=== PATIENT | female | born 1930 | race Caucasian/White ===

== ENCOUNTER → 2017-02-07 | Outpatient (CLI) | payer OTHER ==
[~2017-02-07] MED LIST: AMLO-110 PO; ASPEC81 PO; ATEN-175 PO; CALCTAB5 PO; FSM70 PO; LEVO25TA34 PO; LISI40TA PO; MULT-513 PO; OMEP10CA2; PRLSR20 PO
--- NOTE | 2017-02-07 15:12 | MAMMOGRAPHY REPORT ---
BILATERAL DIGITAL SCREENING MAMMOGRAM WITH CAD: 02/07/2017 CLINICAL HISTORY: Routine screening. Patient has no complaints. TECHNIQUE: Bilateral CC, MLO and repeat right MLO views were obtained. Current study was also evalua jeremy with a Computer Aided Detection (CAD) system. COMPARISON: Comparison is made to exams dated: 02/04/2016 mammogram, 12/26/2014 mammogram, 12/25/2013 [place] mogram, 12/13/2012 mammogram, 12/13/2011 mammogram, and 12/11/2010 mammogram - [facility] ter. BREAST COMPOSITION: There are scattered areas of fibroglandular density in both breasts. FINDINGS: There are mild vascular calcifications in the breasts. No suspicious mass, architectural d istortion or cluster of microcalcifications is seen. IMPRESSION: ACR BI-RADS CATEGORY 1: NEGATIVE There is no mammographic evidence of malignancy. A 1 year screening mammogram is recommended. The pa tient will receive written notification of the results. Approximately 10% of breast cancers are not detected with mammography. A negative mammographic report should not delay biopsy if a clinically suggestive mass is present. Viv Cameron M.D. ay/:02/07/2017 09:18:20 Searchlight Operator: Jennifer GARCIA(Melvin)(Sapna)(BD), [facility] letter sent: Normal 1/2 BI-RADS Code: ACR BI-RADS Category 1: Negative
== END | disposition home or self-care (01) ==
LOC: C.MAMM 08:38
PROVIDERS: ATTEND Family Medicine
DX: Z12.31 Encounter for screening mammogram for malignant neoplasm of breast (principal)

== ENCOUNTER → 2018-02-08 | Outpatient (CLI) | payer OTHER ==
[~2018-02-08] MED LIST changes: -AMLO-110 PO; +AMLO5TAB3 PO
--- NOTE | 2018-02-09 08:09 | MAMMOGRAPHY REPORT ---
BILATERAL DIGITAL SCREENING MAMMOGRAM TOMOSYNTHESIS WITH CAD: 02/08/2018 CLINICAL HISTORY: Routine screening. Patient has no complaints. TECHNIQUE: The study was acquired using full field digital technology and interpreted from soft copy. Tomosynthesis (3D imaging) was done in the CC and MLO projections. A C-view reconstruction was then done. Current study was also evaluated with a Computer Aided Detection (CAD) system. COMPARISON: Comparison is made to exams dated: 02/07/2017 mammogram, 02/04/2016 mammogram, 12/26/2014 ma mmogram, 12/25/2013 mammogram, 12/13/2012 mammogram, and 12/13/2011 mammogram - [facility] [address] BREAST COMPOSITION: There are scattered areas of fibroglandular density in both breasts. FINDINGS: There are mild vascular calcifications in the breasts. The glandular pattern is similar to prior mammograms. No suspicious mass, architectural distortion or cluster of microcalcifications is seen. IMPRESSION: ACR BI-RADS CATEGORY 1: NEGATIVE There is no mammographic evidence of malignancy. A 1 year screening mammogram is recommended.( 019) The patient will receive written notification of the results. Approximately 10% of breast cancers are not detected with mammography. A negative mammographic report should not delay biopsy if a clinically suggestive mass is present. Viv Cameron M.D. ay/:02/08/2018 09:20:36 Electrician Control Equipment: Virginia Cespedes, [facility] letter sent: Normal 1/2 BI-RADS Code: ACR BI-RADS Category 1: Negative
== END | disposition home or self-care (01) ==
LOC: C.MAMM 08:46
PROVIDERS: ATTEND Family Medicine
DX: Z12.31 Encounter for screening mammogram for malignant neoplasm of breast (principal)

== ENCOUNTER 2019-09-18 13:20 | Inpatient (IN) ==
[2019-09-18 13:53] LABS: Basophils # (auto) 0.03 K/uL (0-0.2); Basophils % (auto) 0.4 %; Eosinophils # (auto) 0.06 K/uL (0-0.5); Eosinophils % (auto) 0.8 %; Hemoglobin 14.9 g/dL (12.0-16.0); Immature Granulocytes # (auto) 0.02 K/uL (0.00-0.02); Immature Granulocytes % (auto) 0.3 %; Lymphocytes # (auto) 1.67 K/uL (1.2-3.4); Lymphocytes % (auto) 21.9 %; Mean Corpuscular Hemoglobin 28.5 pg (25-34); Mean Corpuscular Hgb Conc 33.1 g/dL (32-36); Mean Platelet Volume 8.9 fL (7.4-10.4); Monocytes % (auto) 7.9 %; Neutrophils # (auto) 5.24 K/uL (1.4-6.5); Neutrophils % (auto) 68.7 %; Platelet Count 232 K/uL (130-400); RDW Coefficient of Variation 13.2 % (11.5-14.5); Red Blood Count 5.23 M/uL (4.2-5.4); White Blood Count 7.62 K/uL (4.8-10.8)
--- NOTE | 2019-09-18 13:56 | CT Scan Report ---
CT head/brain wo con CLINICAL HISTORY: 89 years-old Female with Stroke evaluation . Acute strokelike symptoms TECHNIQUE: Multiple axial CT images of the head were obtained without contrast. A dose lowering tech nique was utilized adhering to the principles of ALARA. CT DOSE: 537.48 mGy.cm COMPARISON: None. FINDINGS: No acute intracranial hemorrhage, midline shift, intracranial mass, hydrocephalus, territorial ischem ia or abnormal extra-axial collection. Patchy white matter hypodensities suggest chronic microvascula r scheme disease. Decreased attenuation of the right external capsule and right sharpe radiata may al so reflect chronic perivascular ischemic disease versus encephalomalacia related to remote infarct. The calvarium is intact. Mastoid air cells are clear. Mild mucosal thickening of the ethmoid air uriel ls. Complete opacification of the right frontal sinus. 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 Soft tissues and orbits are unremarkable. Prior bilateral lens replacement. IMPRESSION: No acute intracranial abnormality. ACT 112: Negative or not required by law. The above report was generated using voice recognition software. It may contain grammatical, syntax o r spelling errors. Electronically signed by: Emmanuel Kumar M.D. 09/18/2019 1:54 PM
[2019-09-18 14:03] LABS: Partial Thromboplastin Ratio 0.9; Partial Thromboplastin Time 23.9 Seconds (21.0-31.0); Prothrombin Time 10.2 Seconds (9.0-12.0)
[2019-09-18 14:10] LABS: Alanine Aminotransferase 22 U/L (12-78); Albumin Level 4.2 gm/dl (3.4-5.0); Aspartate Aminotransferase 18 U/L (15-37); BUN Creatinine Ratio 17.4 (10-20); Blood Urea Nitrogen 20 mg/dl (7-18); Calcium 9.8 mg/dl (8.5-10.1); Carbon Dioxide 32 mmol/L (21-32); Chloride 102 mmol/L (98-107); Creatinine Clr Calc Pharmacy 24.5 ml/min; Est GFR (African American) 49.7; Est GFR (Non-African American) 42.9; Glucose 131 mg/dl (70-99); Magnesium 2.3 mg/dl (1.8-2.4); Potassium 3.7 mmol/L (3.5-5.1); Sodium 140 mmol/L (136-145)
[2019-09-18] MEDS ORDERED: LABETALOL HCL IV 5 MG/ML 20ML IV STA ×3 (14:10→15:55)
--- NOTE | 2019-09-18 14:12 | XRay Report ---
XR chest 1V portable CLINICAL HISTORY: cva mental status change COMPARISON STUDY: No previous studies for comparison. FINDINGS: The bones soft tissues and hemidiaphragms are normal. The cardiomediastinal silhouette is n ormal. The lungs are clear. The pulmonary vasculature is normal. IMPRESSION: Negative chest. ACT 112: Negative or not required by law. The above report was generated using voice recognition software. It may contain grammatical, syntax or spelling errors. Electronically signed by: Darian Ambrose M.D. 09/18/2019 2:11 PM
[2019-09-18 14:15] LABS: Albumin Globulin Ratio 1.2 (0.9-2); Alkaline Phosphatase 82 U/L (45-117); Bilirubin,Total 0.5 mg/dl (0.2-1); Globulin 3.6 gm/dl (2.5-4.0); Total Protein 7.9 gm/dl (6.4-8.2); Troponin I < 0.015 ng/ml (0-0.045)
[2019-09-18] MEDS ORDERED: ASPIRIN CHEW 324 MG PO STA (14:34)
--- NOTE | 2019-09-18 15:04 | Electrocardiogram Report ---
Test Reason : Blood Pressure : / mmHG Vent. Rate : 079 BPM Atrial Rate : 079 BPM P-R Int : 146 ms QRS Dur : 090 ms QT Int : 392 ms P-R-T Axes : 072 -71 055 degrees QTc Int : 449 ms Normal sinus rhythm Left anterior fascicular block Abnormal ECG When compared with ECG of 07-AUG-2003 19:18, Left anterior fascicular block is now Present Confirmed by Tai Parson ([id number]) on 09/18/2019 3:04:18 PM Referred By: REFERRED SELF Confirmed By:Shahriar Parson
--- NOTE | 2019-09-18 15:56 | History & Physical Report ---
Date of Service September 18, 2019 Assessment & Plan (1) Hypertensive urgency: (2) Confusion: Pt is 89 y/o F with PMH HTN, CKD III, hypothyroidism, GERD, h/o subarachnoid hemorrhage in 2003 presented to ER with complaint of trouble remembering today around 11:00AM and frontal FREEMAN. In ER afebrile, P: 889, R: 20, BP: 206/112. SBP remains in 200's after 2 doses of Labetalol 10mg IV in ER CT Head: no acute changes DDX: hypertensive encephalopathy, TIA, Stroke -UA pending -Tele to monitor for arrhythmias -lipids and A1C in AM -MRI brain -Consider echo, carotid US if MRI positive for CVA -PT/OT consult -Start daily aspirin -Labetalol IV PRN SBP>180 -Will start amlodipine 2.5mg BID with holding parameters for SBP<140 to avoid lowering BP's too much -Continue lisinopril -Neurology consult (3) HTN (hypertension): Pt is on lisinopril 40mg daily and losartan 25mg BID at home -Hold losartan -Continue lisinopril -Will add amlodipine 2.5mg BID (4) CKD (chronic kidney disease), stage III: Cr: 1.14. Baseline ~1.0 -Monitor renal functions -Avoid nephrotoxic agents (5) Hypothyroidism: TSH: 2.0 -Continue levothyroxine DVT Prophylaxis -Heparin SQ Full Code as per discussion with pt Follows with Dr Patton for routine care Pt was seen and care coordinated with Dr Concepcion. See addendum History of Present Illness Chief Complaint: Trouble remembering Primary Care Provider: José Patton MD Pt is 89 y/o F with PMH HTN, CKD III, hypothyroidism, GERD, h/o subarachnoid hemorrhage in 2003 presented to ER with complaint of memory difficulties today. History obtained with assistance of son secondary to patient's memory troubles. Reports patient woke up this morning and was her normal mental state. Patient states she thinks that she took her morning medications. Son reports around 11: 00 AM the patient started having trouble remembering which has continued. Patient also reports frontal headache. Denies any recent illnesses. Denies any recent falls or head injury. Denies new medications or OTC meds or supplements. Denies fever/chills, diaphoresis, N/V/D/C, dizziness, syncope, vision changes, neck pain, CP, SOB, orthopnea, palpitations, cough, sore throat, choking, otalgia, rhinorrhea, abdominal pain, paresthesias, weakness, extremity weakness, extremity edema, rashes, urinary symptoms. Allergies Allergy/AdvReac Type Severity Reaction Status Date / Time Sulfa (Sulfonamide Allergy Unknown SWEATING, Verified 09/18/19 15:29 Antibiotics) HOT FLASHES sulfamethoxazole Allergy Unknown SWEATING, Verified 09/18/19 15:29 HOT FLASHES trimethoprim Allergy Unknown SWEATING, Verified 09/18/19 15:29 HOT FLASHES Home Medications Home Medications Medication Instructions Recorded Confirmed Type famotidine 20 mg PO HS 09/18/19 09/18/19 History levothyroxine 75 mcg PO QAM 09/18/19 09/18/19 History lisinopril 40 mg PO QAM 09/18/19 09/18/19 History losartan 25 mg PO BID 09/18/19 09/18/19 History metoprolol succinate 50 mg PO DAILY 09/18/19 09/18/19 History multivitamin 1 tab PO DAILY 09/18/19 09/18/19 History olopatadine 1 drp OPB QAM 09/18/19 09/18/19 History Past Med/Surg History Medical History CKD (chronic kidney disease), stage III GERD (gastroesophageal reflux disease) History of subarachnoid hemorrhage HTN (hypertension) Hypothyroidism Surgical History History of appendectomy Hx of tonsillectomy Family History Other Heart disease Hypertension Social History Preferred Language: Irish Communication Ability: Effective Dental Ceramist Required: No Beliefs That Will Affect Care: None Current Living Situation: Alone Other Information That Helps Us Care for You: Yes Feels Safe at Home: Yes Safety Concerns: Feels Safe At This Time Smoking Status: Never smoker Hx Alcohol Use: Yes Hx Substance Use: No Review of Systems Review of Systems: All systems reviewed & are unremarkable except as noted in HPI & below Physical Exam Physical Exam: General: no distress, WDWN Head: normocephalic, atraumatic Eyes: PERRL, EOM's intact, conjunctiva non-injected, anicteric ENT: normal inspection external ears, nose, mucous membranes moist Neck: supple, trachea midline, non-tender Lungs: clear, no respiratory distress, no wheezing/rhonchi/rales CV: RRR, S1, S2, S4 heart sound, no murmur, no pretibial edema Abd: normal BS, soft, non-tender Ext: no cyanosis, no calf tenderness Neuro: Alert, oriented to person, can remember her month but not day or year, knows current month and year, and knows son but has hesitation remembering sons name. Knows in hospital, unsure of city. Speech is clear, normal affect Visual white intact. Facial sensation is intact and symmetric, The face is strong and symmetric, Hearing grossly intact, Soft palate elevates symmetrically, Shoulder shrug intact, Tongue is midline, normal movement, no fasciculations. No pronator drift. Strength 5/5 throughout upper and lower extremities Skin: warm, dry Results & Data Vital Signs (Past 12 Hours) Vital Signs Temp Pulse Resp BP Pulse Ox 09/18/19 13:55 96 09/18/19 13:25 36.8 C 89 20 206/112 H 92 Laboratory Results Short CBC 09/18/19 Range/Units 13:42 WBC 7.62 (4.8-10.8) K/uL Hgb 14.9 (12.0-16.0) g/dL Hct 45.0 (37-47) % Plt Count 232 (130-400) K/uL BMP 09/18/19 13:42 Sodium 140 Potassium 3.7 Chloride 102 Carbon Dioxide 32 BUN 20 H Creatinine 1.14 Glucose 131 H Calcium 9.8 Cardiac Enzymes 09/18/19 Range/Units 13:42 Troponin I < 0.015 (0-0.045) ng/ml Liver Function 09/18/19 Range/Units 13:42 Total Bilirubin 0.5 (0.2-1) mg/dl AST 18 (15-37) U/L ALT 22 (12-78) U/L Alkaline Phosphatase 82 (45-117) U/L Albumin 4.2 (3.4-5.0) gm/dl Diagnostic Findings CT HEAD: IMPRESSION: No acute intracranial abnormality. CXR: IMPRESSION: Negative chest. ECG Rate (beats per minute): 79 Rhythm: sinus rhythm Findings: + LAFB Code Status & VTE Plan VTE Prophylaxis Plan VTE Prophylaxis will be ordered: Yes Supervising Physician Co-Signing Physician Notes HISTORY: Record reviewed. Patient interviewed and examined in ED. Care coordinated with Cori Trevino PA-C. Please refer to her documentation for complete history. Briefly, 89-year-old female with history of hypertension, traumatic subarachnoid hemorrhage, and other problems. Presented to ED with acute onset of confusion and problems with memory. Experiencing a frontal headache. No fever or symptoms that suggest infection. EXAM: General- no distress Vital signs- temp 36.8, pulse 89, respirations 20, BP 206/112 Lungs- clear to auscultation; no respiratory distress Cardiovascular- RRR; no murmur; S4 gallop; no JVD; no pretibial edema Abdomen- + bowel sounds, soft, nontender Extremities- no cyanosis; no calf tenderness Neuro- alert, oriented to person, hospital, year, but not exact date; PERRLA, EOMI; no facial palsy or dysarthria; motor strength extremities 5/5 bilaterally; plantar reflexes downgoing bilaterally Skin- warm & dry DATA: CBC unremarkable. Chemistry profile showed normal electrolytes, BUN 20, creatinine 1.14, glucose 131. UA negative. Other lab studies as noted. Chest x-ray negative. CT of head showed small vessel ischemic changes, no apparent hemorrhage or acute ischemic infarct. EKG performed at 1407 reviewed and demonstrated normal sinus rhythm at 80 / minute, no acute changes. ASSESSMENT AND PLAN: Hypertensive urgency with altered mental status. No acute findings on CT of head. No apparent infection. No new medications. Check MRI brain to rule out acute ischemic event. Titrate antihypertensive medications. Please refer to FLORENCE Trevino's documentation for discussion of other issues.
[2019-09-18 16:52] LABS: Appearance Urine Clear (Clear); Bilirubin Urine Negative (Negative); Blood Urine Negative (Negative); Color Urine Yellow; Glucose Urine UA Negative (Negative); Ketones Urine Negative (Negative); Leukocyte Esterase Urine Negative (Negative); Nitrite Urine Negative (Negative); Protein Urine Negative (Negative); Specific Gravity Urine 1.012 (1.000-1.030); Urobilinogen Urine Negative (Negative)
[2019-09-18] MEDS ORDERED: PHARMACIST DISCHARGE MED REC CONSULT PRN (16:58)
[2019-09-18] MEDS ORDERED: LABETALOL HCL IV 5 MG/ML 20ML IV PRN (16:58)
[2019-09-18 17:13] LABS: Amphetamines+Metham, Urine Neg (Neg); Barbiturates, Urine Neg (Neg); Benzodiazepine, Urine Neg (Neg); Cocaine, Urine Neg (Neg); MDMA (Ecstacy), Urine Neg (Neg); Methadone, Urine Neg (Neg); Opiate, Urine Neg (Neg); Phencyclidine, Urine Neg (Neg)
--- NOTE | 2019-09-18 17:51 | Emergency Department Note ---
Entered by Duglas James acting as a scribe for Oli Baez DO History of Present Illness General Chief complaint: Neuro Symptoms/Deficit Stated complaint: CONFUSION,WEAKNESS, CANT FIND WORDS Source: patient and family (son) Limitations: no limitations History of Present Illness Onset (ago): hour(s) (3.5 hours) Location: head Pain Consistency: + constant Maximum Pain Intensity: 0 Quality: + constant Associated symptoms: + other (slow speaking, trouble remembering names, dizziness, ) The patient is a 89 year old female who presents to the Emergency Room with complaints of constant weakness starting 3.5 hours ago. The patient's son states the patient was fine this morning. He states the patient started to get dizzy around 1100 today. He notes the patient then laid down and then answered the phone. He notes the patient was having trouble speaking and remembering names. He states she has been talking very slow which is unusual for her. He notes the patient was speaking better on the way to the ED, but states her speech worse now. The patient states her trouble remembering things got a little better. She states her dizziness is a little better now. She denies having any vision problems. Home Medications Home Medications Medication Instructions Recorded Confirmed Type famotidine 20 mg PO HS 09/18/19 09/18/19 History levothyroxine 75 mcg PO QAM 09/18/19 09/18/19 History lisinopril 40 mg PO QAM 09/18/19 09/18/19 History losartan 25 mg PO BID 09/18/19 09/18/19 History metoprolol succinate 50 mg PO DAILY 09/18/19 09/18/19 History multivitamin 1 tab PO DAILY 09/18/19 09/18/19 History olopatadine 1 drp OPB QAM 09/18/19 09/18/19 History Allergies Allergy/AdvReac Type Severity Reaction Status Date / Time Sulfa (Sulfonamide Allergy Unknown SWEATING, Verified 09/18/19 15:29 Antibiotics) HOT FLASHES sulfamethoxazole Allergy Unknown SWEATING, Verified 09/18/19 15:29 HOT FLASHES trimethoprim Allergy Unknown SWEATING, Verified 09/18/19 15:29 HOT FLASHES Past Med/Surg History Medical History CKD (chronic kidney disease), stage III GERD (gastroesophageal reflux disease) History of subarachnoid hemorrhage HTN (hypertension) Hypothyroidism Surgical History History of appendectomy Hx of tonsillectomy Family History Other Heart disease Hypertension Social History Preferred Language: Nepalese Communication Ability: Effective Trommel Tender Required: No Beliefs That Will Affect Care: None Current Living Situation: Alone Other Information That Helps Us Care for You: Yes Feels Safe at Home: Yes Safety Concerns: Feels Safe At This Time Smoking Status: Never smoker Hx Alcohol Use: Yes Hx Substance Use: No Review of Systems See HPI for pertinent positives & negatives. and A total of 10 systems reviewed and were otherwise negative Physical Exam Vital Signs Vital Signs - 24 hr 09/18/19 13:25 09/18/19 13:55 09/18/19 14:11 Temperature 36.8 C Temperature Source Oral Pulse Rate 89 79 Pulse Rate from SpO2 Sensor Respiratory Rate 20 13 Blood Pressure 206/112 H 189/108 H Blood Pressure Mean 143 143 Blood Pressure Position Sitting Pulse Oximetry 92 96 Oxygen Delivery Method Room Air Room Air Sepsis Recent Fever Within 48 Hours No Sepsis New/Unexplained Change in Mental Status No Sepsis Action Taken by Nursing No Action Required 09/18/19 14:15 09/18/19 14:30 09/18/19 14:45 Temperature Temperature Source Pulse Rate 76 75 74 Pulse Rate from SpO2 Sensor 76 75 74 Respiratory Rate 18 16 13 Blood Pressure 211/103 H 188/103 H 214/97 H Blood Pressure Mean 115 141 119 Blood Pressure Position Pulse Oximetry 94 95 94 Oxygen Delivery Method Sepsis Recent Fever Within 48 Hours Sepsis New/Unexplained Change in Mental Status Sepsis Action Taken by Nursing 09/18/19 15:00 09/18/19 15:16 09/18/19 15:27 Temperature Temperature Source Pulse Rate 78 72 70 Pulse Rate from SpO2 Sensor 79 73 69 Respiratory Rate 23 16 20 Blood Pressure 208/100 H 231/96 H 231/106 H Blood Pressure Mean 113 116 154 Blood Pressure Position Pulse Oximetry 98 94 90 Oxygen Delivery Method Sepsis Recent Fever Within 48 Hours Sepsis New/Unexplained Change in Mental Status Sepsis Action Taken by Nursing 09/18/19 15:30 09/18/19 15:46 Temperature Temperature Source Pulse Rate 74 78 Pulse Rate from SpO2 Sensor 73 78 Respiratory Rate 14 21 Blood Pressure 222/97 H 224/114 H Blood Pressure Mean 117 151 Blood Pressure Position Pulse Oximetry 93 93 Oxygen Delivery Method Sepsis Recent Fever Within 48 Hours Sepsis New/Unexplained Change in Mental Status Sepsis Action Taken by Nursing GENERAL: alert, well nourished, no distress, non-toxic. Sitting up in bed. EYE EXAM: normal conjunctiva OROPHARYNX: no exudate, no erythema, lips, buccal mucosa, and tongue normal and mucous membranes are moist NECK: supple, no nuchal rigidity, no adenopathy, non-tender LUNGS: Clear to auscultation. Normal chest wall mechanics HEART: no murmurs, S1 normal and S2 normal ABDOMEN: abdomen soft, non-tender, normo-active bowel sounds, no masses, no rebound or guarding. BACK: Back is symmetrical on inspection and there is no deformity, no midline tenderness, no CVA tenderness. SKIN: no rashes and no bruising UPPER EXTREMITIES: upper extremities are grossly normal. LOWER EXTREMITIES: No pitting edema. NEURO EXAM: Normal sensorium, cranial nerves II-XII intact, normal speech, no weakness of arms, no weakness of legs. No drift. Finger to nose intact. Gross sensation intact. Normal GUNNAR of upper extremities. Normal heel to christianson. Intermittent stuttering speech. Course Course ED COURSE: Vital signs were reviewed and showed hypertension The patients medical record was reviewed The above diagnostic studies were performed and reviewed. ED treatments and interventions as stated above. 1331: The patient was evaluated in room B4B. A complete history and physical examination was performed. 1341: Upon reevaluation, the patient is getting admitted. I discussed my findings with the patient and she understands and agrees with the treatment plan. 1343: I spoke with Dr. Felix Martinez Neurology. She agrees with the current work-up plan and states she would not call a stroke alert. 1433: I reevaluated the patient. She currently feels better. 1434: I discussed the patient's case with Dr. Jamey Cook Hospitalist. He will evaluate the patient for further management Based on the patients age, coexisting illnesses, exam and lab findings the decision to treat as an inpatient was made. The patient remained stable while under my care. The patient will be evaluated for further management. Administered Medications Labetalol HCl (Normodyne) 10 mg IV Q1H PRN PRN Reason: Hypertension Stop: 10/18/19 16:57 Last Admin: 09/18/19 17:37 Dose: 10 mg Documented by: [id number] Cosigned by: [id number] Discontinued Medications Aspirin (Aspirin) 324 mg PO NOW STA Stop: 09/18/19 14:35 Last Admin: 09/18/19 14:50 Dose: 324 mg Documented by: [id number] Labetalol HCl (Normodyne) 10 mg IV NOW STA Stop: 09/18/19 14:11 Last Admin: 09/18/19 14:25 Dose: 10 mg Documented by: [id number] Cosigned by: [id number] Labetalol HCl (Normodyne) 10 mg IV NOW STA Stop: 09/18/19 15:00 Last Admin: 09/18/19 15:19 Dose: 10 mg Documented by: [id number] Cosigned by: [id number] Labetalol HCl (Normodyne) 10 mg IV NOW STA Stop: 09/18/19 15:56 Last Admin: 09/18/19 16:27 Dose: 10 mg Documented by: [id number] Cosigned by: [id number] Critical Care Time Critical Care Time: Yes Total Critical Care Time: 40 I have personally spent 40 minutes of critical care time in the direct management of this patient. This includes bedside care, interpretation of diagnostic studies, and testing, discussion with consultants, patient, and family members, and other required patient management activities. This 40 minutes is in excess of all separately billable procedures. Medical Decision Making Differential Diagnosis Differential Diagnosis includes but is not limited to ischemic Stroke, hemorrhagic stroke, bells palsy, mass, neoplasm, migraine headache, seizure, subarachnoid hemorrhage, TIA, and transient global amnesia. Medical Records Attestation: I reviewed the patient's medical records. Home Medications Current Medication List: was personally reviewed by me Laboratory Data Attestation: I reviewed the patient's lab results. Result diagrams: 09/18/19 13:42 09/18/19 13:42 Lab Results 09/18/19 09/18/19 09/18/19 Range/Units 13:42 13:42 13:42 WBC 7.62 (4.8-10.8) K/uL RBC 5.23 (4.2-5.4) M/uL Hgb 14.9 (12.0-16.0) g/dL Hct 45.0 (37-47) % MCV 86.0 (80-100) fL MCH 28.5 (25-34) pg MCHC 33.1 (32-36) g/dL RDW Std Deviation 42.0 (36.4-46.3) fL RDW Coeff of Walter 13.2 (11.5-14.5) % Plt Count 232 (130-400) K/uL MPV 8.9 (7.4-10.4) fL Immature Gran % (Auto) 0.3 % Neut % (Auto) 68.7 % Lymph % (Auto) 21.9 % Cottonwood % (Auto) 7.9 % Eos % (Auto) 0.8 % Baso % (Auto) 0.4 % Immature Gran # (Auto) 0.02 (0.00-0.02) K/uL Neut # (Auto) 5.24 (1.4-6.5) K/uL Lymph # (Auto) 1.67 (1.2-3.4) K/uL [place] # (Auto) 0.60 H (0.11-0.59) K/uL Eos # (Auto) 0.06 (0-0.5) K/uL Baso # (Auto) 0.03 (0-0.2) K/uL PT 10.2 (9.0-12.0) Seconds INR 1.0 (0.9-1.1) APTT 23.9 (21.0-31.0) Seconds PTT Ratio 0.9 Sodium 140 (136-145) mmol/L Potassium 3.7 (3.5-5.1) mmol/L Chloride 102 (98-107) mmol/L Carbon Dioxide 32 (21-32) mmol/L Anion Gap 6.0 (3-11) BUN 20 H (7-18) mg/dl Creatinine 1.14 (0.6-1.2) mg/dl Est Cr Clr Drug Dosing 24.5 ml/min Est GFR ( Amer) 49.7 Est GFR (Non-Af Amer) 42.9 BUN/Creatinine Ratio 17.4 (10-20) Glucose 131 H (70-99) mg/dl POC Glucose (70-99) mg/dl Calcium 9.8 (8.5-10.1) mg/dl Magnesium 2.3 (1.8-2.4) mg/dl Total Bilirubin 0.5 (0.2-1) mg/dl AST 18 (15-37) U/L ALT 22 (12-78) U/L Alkaline Phosphatase 82 (45-117) U/L Troponin I < 0.015 (0-0.045) ng/ml Total Protein 7.9 (6.4-8.2) gm/dl Albumin 4.2 (3.4-5.0) gm/dl Globulin 3.6 (2.5-4.0) gm/dl Albumin/Globulin Ratio 1.2 (0.9-2) TSH 2.020 (0.300-4.500) uIu/ml Blood Type Antibody Screen 09/18/19 09/18/19 Range/Units 13:42 13:57 WBC (4.8-10.8) K/uL RBC (4.2-5.4) M/uL Hgb (12.0-16.0) g/dL Hct (37-47) % MCV (80-100) fL MCH (25-34) pg MCHC (32-36) g/dL RDW Std Deviation (36.4-46.3) fL RDW Coeff of Walter (11.5-14.5) % Plt Count (130-400) K/uL MPV (7.4-10.4) fL Immature Gran % (Auto) % Neut % (Auto) % Lymph % (Auto) % Cottonwood % (Auto) % Eos % (Auto) % Baso % (Auto) % Immature Gran # (Auto) (0.00-0.02) K/uL Neut # (Auto) (1.4-6.5) K/uL Lymph # (Auto) (1.2-3.4) K/uL [place]wood # (Auto) (0.11-0.59) K/uL Eos # (Auto) (0-0.5) K/uL Baso # (Auto) (0-0.2) K/uL PT (9.0-12.0) Seconds INR (0.9-1.1) APTT (21.0-31.0) Seconds PTT Ratio Sodium (136-145) mmol/L Potassium (3.5-5.1) mmol/L Chloride (98-107) mmol/L Carbon Dioxide (21-32) mmol/L Anion Gap (3-11) BUN (7-18) mg/dl Creatinine (0.6-1.2) mg/dl Est Cr Clr Drug Dosing ml/min Est GFR ( Amer) Est GFR (Non-Af Amer) BUN/Creatinine Ratio (10-20) Glucose (70-99) mg/dl POC Glucose 117 H (70-99) mg/dl Calcium (8.5-10.1) mg/dl Magnesium (1.8-2.4) mg/dl Total Bilirubin (0.2-1) mg/dl AST (15-37) U/L ALT (12-78) U/L Alkaline Phosphatase (45-117) U/L Troponin I (0-0.045) ng/ml Total Protein (6.4-8.2) gm/dl Albumin (3.4-5.0) gm/dl Globulin (2.5-4.0) gm/dl Albumin/Globulin Ratio (0.9-2) TSH (0.300-4.500) uIu/ml Blood Type A Positive Antibody Screen NEGATIVE Imaging Data Radiologist's Impression: Radiology results as stated below per my review and the radiologist's interpretation: CT head/brain wo con CLINICAL HISTORY: 89 years-old Female with Stroke evaluation . Acute strokelike symptoms TECHNIQUE: Multiple axial CT images of the head were obtained without contrast. A dose lowering technique was utilized adhering to the principles of ALARA. CT DOSE: 537.48 mGy.cm COMPARISON: None. FINDINGS: No acute intracranial hemorrhage, midline shift, intracranial mass, hydrocephalus, territorial ischemia or abnormal extra-axial collection. Patchy white matter hypodensities suggest chronic microvascular scheme disease. Decreased attenuation of the right external capsule and right sharpe radiata may also reflect chronic perivascular ischemic disease versus encephalomalacia related to remote infarct. The calvarium is intact. Mastoid air cells are clear. Mild mucosal thickening of the ethmoid air cells. Complete opacification of the right frontal sinus. 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 Soft tissues and orbits are unremarkable. Prior bilateral lens replacement. IMPRESSION: No acute intracranial abnormality. ACT 112: Negative or not required by law. The above report was generated using voice recognition software. It may contain grammatical, syntax or spelling errors. Electronically signed by: Emmanuel Kumar M.D. 09/18/2019 1:54 PM XR chest 1V portable CLINICAL HISTORY: cva mental status change COMPARISON STUDY: No previous studies for comparison. FINDINGS: The bones soft tissues and hemidiaphragms are normal. The cardiomedias tinal silhouette is normal. The lungs are clear. The pulmonary vasculature is normal. IMPRESSION: Negative chest. ACT 112: Negative or not required by law. The above report was generated using voice recognition software. It may contain grammatical, syntax or spelling errors. Electronically signed by: Darian Ambrose M.D. 09/18/2019 2:11 PM ECG Data Attestation: I personally reviewed and interpreted this ECG as follows: Indication: + weakness Rate (beats per minute): 79 Rhythm: + sinus rhythm ECG Intervals/blocks: + Normal QT-c ECG Winter: + Normal ECG Findings: no PVCs Blood Pressure Blood Pressure Findings: Elevated blood pressure Blood Pressure Disposition: further management by hospitalist YURY Narrative Patient is an 89-year-old female that presents the ER for slow speech. Upon arrival she was brought in and found to be hypertensive with systolic blood pressures of 220. She is otherwise completely neurologically intact without any focal deficit. IV was established blood work was obtained showed no significant leukocytosis or anemia. INR unremarkable. BMP along with LFTs bilirubin troponin TSH were remarkable for BSG slightly elevated in 130s. UA was negative. Tox was negative. CT of the head showed no acute pathology. Did grayson scuss with [facility] stroke neurologist and they agreed with current treatment. Patient was given 2 dose of IV labetalol as pressures remained in the 200s but eventually came down to the 180s. Patient was given aspirin as well. EKG was nondiagnostic. Updated bedside and discussed with the hospitalist for admission secondary to hypertensive emergency and some intermittent stuttering speech although this was not witnessed by myself. Impression & Plan Hypertensive emergency, Confusion Discharge Plan Visit Data *Final* Discharge Date/Time: 09/18/19 16:44 Chief Complaint: Neuro Symptoms/Deficit Stated Complaint: CONFUSION,WEAKNESS, CANT FIND WORDS ED Provider: Oli Baez Discharge Problem: Hypertensive emergency, Confusion Patient Disposition: Admitted As Inpatient Discharge Instructions Interventions: ED Discharge Assessment Last Done: 09/18/19 16:44 The scribe's documentation has been prepared under my direction and personally reviewed by me in its entirety. I confirm that the note above accurately reflects all work, treatment, procedures, and medical decision making performed by me.
[2019-09-18] MEDS: ACETAMINOPHEN 325 MG TAB PO PRN (18:06)
[2019-09-18] MEDS ORDERED: LORazepam 0.25 MG/0.5 ML VIAL IV PRN (20:06)
[2019-09-18] MEDS: HEPARIN SOD 5,000 UNIT/0.5 ML VIAL SQ SCH (21:24)
[2019-09-18] MEDS: FAMOTIDINE 20 MG TAB PO SCH (21:24)
[2019-09-18] MEDS: AMLODIPINE BESYLATE 5 MG TAB PO SCH (21:24)
--- NOTE | 2019-09-18 22:52 | Magnetic Resonance Report ---
MRI OF THE BRAIN WITHOUT CONTRAST CLINICAL HISTORY: Acute stroke like symptoms. DIZZINESS. HEADACHE. ACUTE LOSS AND MEMORY. COMPARISON STUDY: Noncontrast head CT dated 09/18/2019 FINDINGS: Sagittal T1, axial diffusion, proton density and T2 weighted axial, coronal FLAIR, and axial T1-weigh jeremy images were acquired. No intra or extra-axial mass lesions are visualized Axial diffusion-weighted images reveal no evidence of acute or subacute infarction. There is no evidence of ventricular dilatation. Proton density T2-weighted and FLAIR images reveal moderate foci of increased T2 signal within the wh ite matter, likely on a small vessel basis. There are no abnormal flow voids. IMPRESSION: 1. No acute intracranial findings 2. No evidence of acute or subacute infarction 3. No evidence of intracranial mass 4. Moderate foci of increased T2 and FLAIR signal within the white matter likely on a small vessel ba sis. ACT 112: Negative or not required by law. Electronically signed by: Torsten Menon M.D. 09/18/2019 10:50 PM
[2019-09-19 07:05] LABS: Basophils # (auto) 0.02 K/uL (0-0.2); Basophils % (auto) 0.3 %; Eosinophils # (auto) 0.05 K/uL (0-0.5); Eosinophils % (auto) 0.8 %; Hematocrit (blood only) 40.6 % (37-47); Hemoglobin 13.2 g/dL (12.0-16.0); Immature Granulocytes # (auto) 0.01 K/uL (0.00-0.02); Immature Granulocytes % (auto) 0.2 %; Lymphocytes # (auto) 1.86 K/uL (1.2-3.4); Lymphocytes % (auto) 29.7 %; Mean Corpuscular Hemoglobin 27.9 pg (25-34); Mean Corpuscular Hgb Conc 32.5 g/dL (32-36); Mean Corpuscular Volume 85.8 fL (80-100); Monocytes # (auto) 0.54 K/uL (0.11-0.59); Monocytes % (auto) 8.6 %; Neutrophils # (auto) 3.78 K/uL (1.4-6.5); Neutrophils % (auto) 60.4 %; Platelet Count 191 K/uL (130-400); RDW Coefficient of Variation 13.3 % (11.5-14.5); Red Blood Count 4.73 M/uL (4.2-5.4); White Blood Count 6.26 K/uL (4.8-10.8)
[2019-09-19 07:39] LABS: BUN Creatinine Ratio 19.1 (10-20); Calcium 8.8 mg/dl (8.5-10.1); Creatinine Clr Calc Pharmacy 32.5 ml/min; Est GFR (African American) 62.8; Est GFR (Non-African American) 54.2
[2019-09-19] MEDS: LEVOTHYROXINE SODIUM 75 MCG TABLET PO SCH (08:20)
[2019-09-19] MEDS: METOPROLOL SUCC 50MG EXT REL TAB PO SCH (08:25)
[2019-09-19] MEDS: MULTIVITAMIN TAB PO SCH (08:25)
[2019-09-19] MEDS: ASPIRIN 81 MG ECTAB PO SCH (08:25)
[2019-09-19] MEDS: lisinopriL 40 MG TAB PO SCH (08:26)
[2019-09-19] MEDS: AMLODIPINE BESYLATE 5 MG TAB PO SCH ×2 (08:26→21:01)
[2019-09-19] MEDS: HEPARIN SOD 5,000 UNIT/0.5 ML VIAL SQ SCH ×2 (08:26→21:01)
[2019-09-19 09:43] LABS: Estimated Average Glucose 114 mg/dl; Hemoglobin A1C 5.6 % (4.5-5.6)
--- NOTE | 2019-09-19 14:14 | Neurology Consultation ---
Date of Consultation September 19, 2019 Assessment & Plan (1) Confusion: 1. MRI brain no acute findings 2. optimize HTN, HLD, DM LDL <70 consider patient age 3. TTE- if not already done 4. carotid doppler -evaluation of vessels 5. add aspirin 81 mg if not contra indication 6. ZIO as an out patient neurology follow up in 4-6 weeks Essence Tan PAC schedule (2) HTN (hypertension): (3) Hypertensive urgency: Supervising Physician Co-Signing Physician Notes I have seen and discussed above patient with Dr Essence Owusu, neurology Pt seen and examined. Images reviewed.Several hours of confusion and dysarthria with headache. Exam notable for nml speech and language, no facial asymm, nml visual white, Symmet strength. Imp presumed TIA vs hypertensive urgency.P CTA of head and neck, echo, asa, gradual reduction of bp. Will follow with you. LUDWIN Owusu MD History of Present Illness Reason for Consultation: memory issues Requesting Physician: Torri Rico DO Attending Physician: Torri Rico DO History of Present Illness Letitia is an 89 year old female who presents [facility] ED with complaints of constant weakness starting 3.5 hours ago. He states the patient started to get dizzy and laid down. She was talking on the phone to her daughter and was having trouble speaking and remembering names. He states she has been talking very slow which is unusual for her speech got a little better on the way to the ED but the started getting worse again. In the ED her dizziness was a little better. Her blood pressure systolic was 200 + once they started getting the blood pressure under control the speech and the dizziness resolved. denies CP, SOB, abdominal pain one sided weakness, numbness tingling, current speech issues, swallowing issues, N, V, vision changes. She states she had vertigo in the past but this seemed different. Allergies Allergy/AdvReac Type Severity Reaction Status Date / Time Sulfa (Sulfonamide Allergy Unknown SWEATING, Verified 09/18/19 15:29 Antibiotics) HOT FLASHES sulfamethoxazole Allergy Unknown SWEATING, Verified 09/18/19 15:29 HOT FLASHES trimethoprim Allergy Unknown SWEATING, Verified 09/18/19 15:29 HOT FLASHES Home Medications Home Medications Medication Instructions Recorded Confirmed Type famotidine 20 mg PO HS 09/18/19 09/18/19 History levothyroxine 75 mcg PO QAM 09/18/19 09/18/19 History lisinopril 40 mg PO QAM 09/18/19 09/18/19 History losartan 25 mg PO BID 09/18/19 09/18/19 History metoprolol succinate 50 mg PO DAILY 09/18/19 09/18/19 History multivitamin 1 tab PO DAILY 09/18/19 09/18/19 History olopatadine 1 drp OPB QAM 09/18/19 09/18/19 History amlodipine [Norvasc] 10 mg PO QAM #30 tab 09/20/19 Rx aspirin 81 mg PO DAILY #90 tab 09/20/19 Rx Patient History Medical History CKD (chronic kidney disease), stage III GERD (gastroesophageal reflux disease) History of subarachnoid hemorrhage HTN (hypertension) Hypothyroidism Surgical History History of appendectomy Hx of tonsillectomy Family History Other Heart disease Hypertension Social History Preferred Language: Turkish Communication Ability: Effective Club Room Attendant Required: No Beliefs That Will Affect Care: None marital status: / Current Living Situation: Alone Other Information That Helps Us Care for You: Yes Feels Safe at Home: Yes Safety Concerns: Feels Safe At This Time Smoking Status: Never smoker Hx Alcohol Use: Yes Hx Substance Use: No Physical Exam Physical Exam: Physical Exam: Constitutional: appearance nourished, healthy and normal Ears, Nose, Mouth and Throat: mucous membranes moist, no injection and skin normal, eyes normal Cardiovascular: normal S-1 and S-2 and regular rate and rhythm Respiratory: clear to auscultation (CTA) and no rales, rhonchi or wheeze Musculoskeletal: no peripheral edema and good distal pulses Skin: no stigmata of neurocutaneous disease noted and normal and intact Eyes: extraocular muscles intact (EOMI) and pupils equal, round and reactive to light (PERRL) NEUROLOGIC EXAMINATION: Mental status: Alert and interactive Oriented to full date and location Oriented to person Speech fluent with no evidence of aphasia Cranial Nerves smile eye brow raise symmetric Reflexes: Deep tendon reflexes were symmetrical and graded 2/5. down going toes Sensory: intact to light and cool touch Coordination: romberg absent Gait/Stance: Posture normal. Gait normal: with steady with steps, base, turning, heel and toe walking- slight difficulty and tandem gait. Motor: Negative for pronator drift of out stretched arms with eyes closed. Strength: hand [employer] biceps triceps deltoids 5/5 bilaterally, hip flex plantar flex ext 5/5 Results & Data Vital Signs (Past 12 Hours) Vital Signs Temp Pulse Resp BP Pulse Ox 09/19/19 12:01 36.9 C 85 16 157/85 H 91 09/19/19 08:09 36.7 C 80 16 144/78 H 90 09/19/19 03:17 36.6 C 76 17 126/73 92 Laboratory Results Abnormal lab results 09/19/19 09/19/19 Range/Units 06:41 11:46 Carbon Dioxide 33 H (21-32) mmol/L POC Glucose 100 H (70-99) mg/dl Diagnostic Findings MRI brain- No acute intracranial findings No evidence of acute or subacute infarction No evidence of intracranial mass Moderate foci of increased T2 and FLAIR signal within the white matter likely on a small vessel basis. CXR-he bones soft tissues and hemidiaphragms are normal. The cardiomediastinal silhouette is normal. The lungs are clear. The pulmonary vasculature is normal. CT head-No acute intracranial abnormality.
--- NOTE | 2019-09-19 18:05 | Hospitalist Progress Note ---
Date of Service September 19, 2019 Assessment & Plan (1) Confusion: resolved and no gross focal neurologic deficits. Need neck vessel imaging and echo-ordered now. ZIO as outpatient to complete workup. Uncertain if this is considered a TIA at this point. Need more information from pending studies. Uncertain cause of temporary confusion. BP more under control with added CCB. Cont monitoring for goal <140/90. Agree with stopping Cozaar as ACEI/ARB combination therapy may be harmful. cont ASA for now-no issues with taking it previously. No contraindications to continuing it. (2) Hypertensive urgency: Cont Norvasc and titrate as needed. Cont lisinopril 40mg dialy per home regimen. (3) CKD (chronic kidney disease), stage III: stable, monitor (4) Hypothyroidism: cont home Synthroid. (5) DVT prophylaxis: Heparin Full Dispo-to home in am DO Joey Bahena Hospitalist Admission and Anticipated Discharge Date Admission Date: September 18, 2019 Anticipated date of discharge: 09/20/19 Subjective Initial confusion has resolved A&Ox 3 and no neuro deficits. Workup negative so far. Neck vessels not imaged yet Echo not performed Staying overnight to perform these and work on blood pressure Review of Systems Review of Systems: All systems reviewed & are unremarkable except as noted in Subjective Physical Exam Physical Exam: CONSTITUTIONAL: WNWD, vitals as above, generally well- appearing EYES: EOMI bilaterally, PERRL, normal conjunctivae, no scleral icterus RESPIRATORY: clear to auscultation bilaterally, no crackles, rales or wheezes, normal respiratory effort CARDIOVASCULAR: regular rate and rhythm, S1 and 2 heard without murmurs, gallops or rubs, no JVD, no peripheral edema GASTROINTESTINAL: soft, nontender, nondistended MUSCULOSKELETAL: strength 5/5 throughout, head is normocephalic and atraumatic SKIN: warm and dry NEUROLOGIC: PERRL, EOMI, no facial palsy, no dysarthria. CN 2-12 grossly intact, no sensory deficit, normal cognition, normal speech, no tremor. No gross focal deficits. PSYCHIATRIC: alert cooperative and oriented to person, place and time. Results & Data ([facility]) Vital Signs (Past 12 Hours) Vital Signs Temp Pulse Resp BP Pulse Ox 09/19/19 16:00 36.8 C 86 18 152/76 H 95 09/19/19 12:01 36.9 C 85 16 157/85 H 91 09/19/19 08:09 36.7 C 80 16 144/78 H 90 Laboratory Results Short CBC 09/19/19 Range/Units 06:41 WBC 6.26 (4.8-10.8) K/uL Hgb 13.2 (12.0-16.0) g/dL Hct 40.6 (37-47) % Plt Count 191 (130-400) K/uL BMP 09/19/19 06:41 Sodium 139 Potassium 4.0 Chloride 103 Carbon Dioxide 33 H BUN 18 Creatinine 0.94 Glucose 93 Calcium 8.8 Medications Administered Current Inpatient Medications Acetaminophen (Tylenol) 650 mg PO Q4H PRN PRN Reason: Pain or Fever Stop: 10/18/19 16:57 Last Admin: 09/18/19 18:06 Dose: 650 mg Documented by: Amlodipine Besylate (Norvasc) 2.5 mg PO BID POOL Stop: 10/18/19 20:59 Last Admin: 09/19/19 08:26 Dose: 2.5 mg Documented by: Aspirin (Ecotrin Ectab) 81 mg PO DAILY POOL Stop: 10/19/19 08:59 Last Admin: 09/19/19 08:25 Dose: 81 mg Documented by: Famotidine (Pepcid) 20 mg PO HS POOL Stop: 10/18/19 20:59 Last Admin: 09/18/19 21:24 Dose: 20 mg Documented by: Heparin Sodium (Porcine) (Heparin Sodium (Porcine)) 5,000 units SQ Q12 POOL Stop: 10/18/19 20:59 Last Admin: 09/19/19 08:26 Dose: 5,000 units Documented by: Lorazepam (Ativan) 0.25 mg in 0.5 mls @ 0.5 mls/min IV UD PRN PRN Reason: corrections officer to MRI Stop: 10/18/19 20:05 Labetalol HCl (Normodyne) 10 mg IV Q1H PRN PRN Reason: Hypertension Stop: 10/18/19 16:57 Last Admin: 09/18/19 17:37 Dose: 10 mg Documented by: Levothyroxine Sodium (Synthroid) 75 mcg PO DAILYBB POOL Stop: 10/19/19 06:29 Last Admin: 09/19/19 08:20 Dose: 75 mcg Documented by: Lisinopril (Zestril) 40 mg PO QAM [facility] Stop: 10/19/19 08:59 Last Admin: 09/19/19 08:26 Dose: 40 mg Documented by: Metoprolol Succinate (Toprol Xl) 50 mg PO DAILY [facility] Stop: 10/19/19 08:59 Last Admin: 09/19/19 08:25 Dose: 50 mg Documented by: Miscellaneous (Order Awaiting Action) 1 ea N/A QS [facility] Stop: 10/19/19 00:00 Last Admin: 09/19/19 15:26 Dose: Not Given Documented by: Miscellaneous Information (Pharmacist Discharge Med Rec Consult) 1 ea N/A UD PRN PRN Reason: Consult Stop: 10/18/19 16:57 Multivitamins (Multivitamin Tab) 1 tab PO DAILY [facility] Stop: 10/19/19 08:59 Last Admin: 09/19/19 08:25 Dose: 1 tab Documented by:
[2019-09-19] MEDS: FAMOTIDINE 20 MG TAB PO SCH (21:01)
[2019-09-19] MEDS ORDERED: OPTIRAY 320 125ml IV PRN (21:12)
--- NOTE | 2019-09-19 21:29 | CT Scan Report ---
CT angio head wo/w HISTORY: Mental status change tia with exp aphasia TECHNIQUE: Multiaxial CT angiography of the head was performed IV contrast: 100 cc nonionic Maximu m intensity projection images were also obtained. A dose lowering technique was utilized adhering to the principles of ALARA. COMPARISON: None. FINDINGS: There is no mass, hematoma, midline shift, or acute infarct. Visualized intracranial internet assessor al carotid arteries, distal vertebral arteries, and basilar artery are widely patent. There is no sig nificant stenosis, occlusion, or aneurysm seen within the bilateral ACAs, MCAs, or clip on sunglasses inspector. Moderate dave que formation involving the cavernous sinuses segments of the internal carotid arteries bilaterally. IMPRESSION: 1. No significant stenosis of the intracranial vasculature. 2. Moderate atherotic plaque formation at the cavernous sinuses components of the internal carotid ar teries bilaterally. 3. Narrowing at these sites it does not exceed 40%. ACT 112: Negative or not required by law. The above report was generated using voice recognition software. It may contain grammatical, syntax or spelling errors. Electronically signed by: Darian Ambrose M.D. 09/19/2019 9:28 PM
--- NOTE | 2019-09-19 21:33 | CT Scan Report ---
CT angio neck with con HISTORY: Mental status change tia with exp aphasia TECHNIQUE: Multiaxial CT angiography of the neck was performed IV contrast: 100 cc nonionic [place] urements were calculated based on NASCET criteria. Maximum intensity projection images were also obt ained. A dose lowering technique was utilized adhering to the principles of ALARA. COMPARISON STUDY: None. FINDINGS: The aortic arch and proximal great vessels are widely patent. There is no significant sten osis, occlusion, or dissection identified within the bilateral common carotid, internal carotid, or v ertebral arteries. Moderate plaque formation carotid bifurcations bilaterally. Narrowing does not exc eed 30%. IMPRESSION: No significant stenosis, occlusion, or dissection identified within the carotid or vertebral arteries . Moderate 30% narrowing of the carotid bifurcations bilaterally. No evidence for a significant or hi gh-grade stenosis. ACT 112: Negative or not required by law. The above report was generated using voice recognition software. It may contain grammatical, syntax or spelling errors. Electronically signed by: Darian Ambrose M.D. 09/19/2019 9:31 PM
[2019-09-20] MEDS: LEVOTHYROXINE SODIUM 75 MCG TABLET PO SCH (07:10)
[2019-09-20] MEDS: ACETAMINOPHEN 325 MG TAB PO PRN (07:12)
[2019-09-20] MEDS ORDERED: AMLODIPINE BESYLATE 5 MG TAB PO SCH (09:00)
[2019-09-20] MEDS: METOPROLOL SUCC 50MG EXT REL TAB PO SCH (09:19)
[2019-09-20] MEDS: MULTIVITAMIN TAB PO SCH (09:19)
[2019-09-20] MEDS: HEPARIN SOD 5,000 UNIT/0.5 ML VIAL SQ SCH (09:19)
[2019-09-20] MEDS: ASPIRIN 81 MG ECTAB PO SCH (09:19)
[2019-09-20] MEDS: lisinopriL 40 MG TAB PO SCH (09:19)
--- NOTE | 2019-09-20 14:49 | Neurology Progress Note ---
Date of Service September 20, 2019 Assessment & Plan (1) Confusion: 1. MRI brain no acute findings 2. optimize HTN, HLD, DM LDL <70 consider patient age 3. TTE- if not already done 4. CTA head and neck, no significant stenosis no occulsions 5. add aspirin 81 mg 6. ZIO as an out patient ok to discharge when medically stable neurology follow up in 4-6 weeks Essence Tan [facility] schedule (2) HTN (hypertension): (3) Hypertensive urgency: Admission and Anticipated Discharge Date Admission Date: September 19, 2019 Anticipated date of discharge: 09/20/19 Supervising Physician Co-Signing Physician Notes I have seen and discussed above patient with Dr Essence Owusu, neurology. Patient seen. CTA of head and neck reviewed and are noncontributory. LDL 75. Echo shows a PFO. Blood pressure has been under better control. Patient is tolerating aspirin without recurrent events. Impression transient ischemic att ack. Aspirin has been added. LDL is within reasonable control good control of blood pressure over time. She should discuss with primary care how often she should be checking it at home. When she sees us as an outpatient we will schedule a cardiac cath technician. Crissy Owusu MD Stuart Dong is an 89 year old female who presents [facility] ED with complaints of constant weakness starting 3.5 hours ago. He states the patient started to get dizzy and laid down. She was talking on the phone to her daughter and was having trouble speaking and remembering names. He states she has been talking very slow which is unusual for her speech got a little better on the way to the ED but the started getting worse again. In the ED her dizziness was a little better. Her blood pressure systolic was 200 + once they started getting the blood pressure under control the speech and the dizziness resolved. . She states she had vertigo in the past but this seemed different. Today she is ready to go home. reviewed studies she and her son voice an understanding. denies CP, SOB, abdominal pain one sided weakness, numbness tingling, current speech issues, swallowing issues, N, V, vision changes Physical Exam Physical Exam: Gen: alert NAD lungs CTA CV RRR oriented to self, hospital, 2019 Results & Data ([facility]) Vital Signs (Past 12 Hours) Vital Signs Temp Pulse Resp BP Pulse Ox 09/20/19 11:15 36.5 C 84 16 157/80 H 95 09/20/19 07:19 36.4 C L 88 18 168/80 H 92 09/20/19 03:46 36.7 C 75 18 115/68 95 Laboratory Results Abnormal lab results 09/19/19 Range/Units 20:27 POC Glucose 111 H (70-99) mg/dl Diagnostic Findings CTA neck-No significant stenosis, occlusion, or dissection identified within the carotid or vertebral arteries. Moderate 30% narrowing of the carotid bifurcations bilaterally. No evidence for a significant or high-grade stenosis. CTA head-. No significant stenosis of the intracranial vasculature. Moderate atherotic plaque formation at the cavernous sinuses components of the internal carotid arteries bilaterally. Narrowing at these sites it does not exceed 40%. TTE- EF 65-70% possible PFO
[2019-09-20] MEDS ORDERED: STROKE PATIENT DISCHARGE STA (16:15)
--- NOTE | 2019-09-20 16:17 | Discharge Summary ---
Date of Service September 20, 2019 Admission HPI Per Admitting Provider Pt is 89 y/o F with PMH HTN, CKD III, hypothyroidism, GERD, h/o subarachnoid hemorrhage in 2003 presented to ER with complaint of memory difficulties today. History obtained with assistance of son secondary to patient's memory troubles. Reports patient woke up this morning and was her normal mental state. Patient states she thinks that she took her morning medications. Son reports around 11:00 AM the patient started having trouble remembering which has continued. Patient also reports frontal headache. Denies any recent illnesses. Denies any recent falls or head injury. Denies new medications or OTC meds or supplements. Denies fever/chills, diaphoresis, N/V/D/C, dizziness, syncope, vision changes, neck pain, CP, SOB, orthopnea, palpitations, cough, sore throat, choking, otalgia, rhinorrhea, abdominal pain, paresthesias, weakness, extremity weakness, extremity edema, rashes, urinary symptoms. Admission Exam Per Admitting Provider General: no distress, WDWN Head: normocephalic, atraumatic Eyes: PERRL, EOM's intact, conjunctiva non-injected, anicteric ENT: normal inspection external ears, nose, mucous membranes moist Neck: supple, trachea midline, non-tender Lungs: clear, no respiratory distress, no wheezing/rhonchi/rales CV: RRR, S1, S2, S4 heart sound, no murmur, no pretibial edema Abd: normal BS, soft, non-tender Ext: no cyanosis, no calf tenderness Neuro: Alert, oriented to person, can remember her month but not day or year, knows current month and year, and knows son but has hesitation remembering sons name. Knows in hospital, unsure of city. Speech is clear, normal affect Visual white intact. Facial sensation is intact and symmetric, The face is strong and symmetric, Hearing grossly intact, Soft palate elevates symmetrically, Shoulder shrug intact, Tongue is midline, normal movement, no fasciculations. No pronator drift. Strength 5/5 throughout upper and lower extremities Skin: warm, dry Principal Diagnosis TIA Hypertensive Urgency Interatrial shunt Discharge Exam CONSTITUTIONAL: WNWD, vitals as above, generally well-appearing EYES: EOMI bilaterally, PERRL, normal conjunctivae, no scleral icterus RESPIRATORY: clear to auscultation bilaterally, no crackles, rales or wheezes, normal respiratory effort CARDIOVASCULAR: regular rate and rhythm, S1 and 2 heard without murmurs, gallops or rubs, no JVD, no peripheral edema GASTROINTESTINAL: soft, nontender, nondistended MUSCULOSKELETAL: strength 5/5 throughout, head is normocephalic and atraumatic SKIN: warm and dry NEUROLOGIC: PERRL, EOMI, no facial palsy, no dysarthria. CN 2-12 grossly intact, no sensory deficit, normal cognition, normal speech, no tremor. No gross focal deficits. PSYCHIATRIC: alert cooperative and oriented to person, place and time. Discharge Data Allergies Allergy/AdvReac Type Severity Reaction Status Date / Time Sulfa (Sulfonamide Allergy Unknown SWEATING, Verified 09/18/19 15:29 Antibiotics) HOT FLASHES sulfamethoxazole Allergy Unknown SWEATING, Verified 09/18/19 15:29 HOT FLASHES trimethoprim Allergy Unknown SWEATING, Verified 09/18/19 15:29 HOT FLASHES Consultations 09/18/19 14:34 ED Decision to Admit Stat 09/18/19 16:58 Consult Case Management - Discharge Planning Routine Consult Case Management - Discharge Planning Routine Consult Neurology Routine Ordered Studies 09/18/19 13:38 CT head/brain wo con Stat 09/18/19 16:58 MR brain wo con Routine 09/19/19 19:59 CT angio head wo/w Routine CT angio neck with con Routine Hospital Course (1) TIA (transient ischemic attack): (2) Interatrial cardiac shunt: (3) Hypertensive urgency: 89-year-old female presented to the ER with acute confusion for several hours including dysarthria and headache and elevated blood pressure to 206/112. Her systolic blood pressure remained in the 200s despite 2 doses of labetalol 10 mg IV in the ER. Her CT head revealed no acute intracranial abnormalities. She was admitted to the hospitalist service for a stroke work-up, which was in the differential, and was started on amlodipine 2.5 mg p.o. twice daily. She came into the hospital on lisinopril 40 mg daily and losartan 25 mg p.o. twice daily and was taken off of losartan to avoid an NAYELY/ARB combination. An MRI of the brain revealed no acute findings. A baby aspirin was recommended moving forward for a presumed TIA versus episode of hypertensive urgency. Work-up included an echocardiogram revealing mild concentric left ventricular hypertrophy, normal left ventricular systolic function, ejection fraction of 65 to 70% with grade 1 diastolic dysfunction, no significant valvular disease. The echo did reveal a suspected patent foramen ovale. With agitated contrast injection there was evidence of a shunt currently 3-4 beats after visualization in the right atrium/ventricle. Findings suggested a patent foramen ovale though extracardiac shunt was not excluded. Based on her age and rule acute resolution of symptoms, including this being the first evidence of a TIA for her, baby aspirin was continued. A CTA of the head and neck revealed no significant stenosis or occlusions. An outpatient ZIO monitor was recommended to exclude occult arrhythmias. The patient was monitored on telemetry and had no evidence of a cardiac arrhythmia during her hospitalization. She made a full recovery neurologically from her episode of confusion and at time of discharge was mentating and ambulating at baseline and tolerating p.o. Her blood pressure continued to be an issue and Norvasc was increased to 10 mg daily. Blood pressure was 132/72 at time of discharge. Close primary care follow-up was recommended to monitor blood pressure closely with the new changes and to order the ZIO monitor. She was sent home in stable condition. Total Time Total Time Spent Total Time Spent (In Minutes): 60 Total Time Includes: Examination of the Patient, Discharge Planning, Medication Reconciliation and Communication With Other Providers Discharge Plan Discharge Items Patient Disposition: Home - Self-Care Reason For Visit: HTN, URGENCY/STROKE LIKE SYMPTOMS Discharge Diagnosis: TIA Hypertensive Urgency interatrial shunt Activity: Resume your previous activity Non-emergency contact: Primary Care Provider Call non-emergency contact if: you have any medication questions, your symptoms worsen, your pain is not controlled, your pain is worsening, your pain is unusual for you, your pain is concerning for you and you have a fever Follow-up/Referrals: José Patton MD [Primary Care Provider] - Diet: Low Sodium (2gm) Addtl Attending Provider Instructions: Please take all medications as prescribed on discharge list below. You are being placed on a baby aspirin to take daily to help prevent a stroke in the future. It is recommended that you see your primary care provider within one week of discharge from the hospital to ensure you blood pressure is controlled with the new medication changes. It is also recommended that you undergo an event monitor for 7-10 days to ensure you have no underlying cardiac arrhythmias that may have contributed to your initial symptoms. This may be ordered by your primary care provider. It is recommended that you follow-up in the Neurology clinic in 4-6 weeks as a follow-up to this hospitalization. You were found to have a cardiac shunt on the echocardiogram of your heart performed during this hospitalization. Therefore, the baby aspirin has been added for stroke risk reduction moving forward. Unless you have another event consistent with a stroke or TIA in the future, no further workup needs to be done on this. It was a pleasure taking care of you! Please call if you have any questions or problems. You can reach a [facility] hospitalist on duty at [facility] 24 hours a day by calling [phone]. Take care of yourself. Torri Rico, [facility] Hospitalist Addtl Limo Driver Provider Instructions: Risk Factors for Stroke: You can reduce your chances of stroke by working with your medical provider to adopt a healthy lifestyle. Some specific ways to lower your chance of stroke are: * If you are a smoker, now is the time to stop smoking cigarettes * If you are diabetic, improve the control of your blood sugars * Avoid excessive amounts of alcohol * Control high blood pressure * Lose weight if you are overweight * Be sure to lead an active lifestyle * Eat a healthy diet low in salt, cholesterol and fat You should know about other risk factors for stroke that you are unable to control. These include: * Age 55 years or older * Male gender * Certain racial groups: , or / * Family History of Stroke, Mini stroke or Heart Attack * Sickle Cell Disease Follow Up: It is important for you to keep your follow up appointments with your medical provider. Who to Call and When: Medical Emergencies: Call 911 immediately if you experience any of the fo llowing warning signs and symptoms of Stroke: * Sudden numbness or weakness of the face, arm or leg, especially on one side of the body * Sudden confusion, trouble speaking or understanding * Sudden trouble seeing in one or both eyes * Sudden trouble walking, dizziness, loss of balance or coordination * Sudden severe headache with no cause Do not delay calling 911 if you experience any warning signs or symptoms of a stroke. Delay in seeking medical attention may affect what treatments can be given to you. . Pending Studies at Discharge: No Stand-Alone Forms: Medications to Prevent Stroke, [facility], Smoking Cessation Medications and DC Order Prescriptions: New amlodipine [Norvasc] 5 mg Tablet 10 mg PO QAM Qty: 30 RF: 1 aspirin 81 mg Tablet,Delayed Release (Dr/Ec) 81 mg PO DAILY Qty: 90 RF: 1 Continued levothyroxine 75 mcg tablet 75 mcg PO QAM RF: 0 famotidine 20 mg tablet 20 mg PO HS RF: 0 lisinopril 40 mg tablet 40 mg PO QAM RF: 0 olopatadine 0.2 % drops 1 drp OPB QAM RF: 0 multivitamin Tablet 1 tab PO DAILY RF: 0 metoprolol succinate 50 mg tablet extended release 24 hr 50 mg PO DAILY RF: 0 Discontinued losartan 25 mg tablet 25 mg PO BID RF: 0 Discharge Orders: Discharge Order (Routine); Ordered 09/20/19 Ordered By: Torri Rico Admission Data Admit Date/Time: 09/19/19 21:03 Attending Provider: Torri Rico Admit Provider: Souleymane Concepcion Primary Care Provider: José Patton Other Providers: Souleymane Concepcion ; Essence Owusu Other Interventions: Discharge Summary Assessment (RN) Last Done: 09/20/19 17:21 DC Date/Time DO NOT enter until pt leaves facility: 09/20/19 17:50
--- NOTE | 2019-09-20 16:43 | Pharmacy Report ---
Pharmacist Stroke Counseling - Date of Service September 20, 2019 - Scope: Pharmacy has been consulted to provide medication discharge counseling for this patient admitted with transient ischemic attack as per the Pharmacist Discharge Counseling for Stroke Patients Protocol. - Medications on Discharge: Home Medications Medication Instructions Recorded Confirmed famotidine 20 mg PO HS 09/18/19 09/18/19 levothyroxine 75 mcg PO QAM 09/18/19 09/18/19 lisinopril 40 mg PO QAM 09/18/19 09/18/19 losartan 25 mg PO BID 09/18/19 09/18/19 metoprolol succinate 50 mg PO DAILY 09/18/19 09/18/19 multivitamin 1 tab PO DAILY 09/18/19 09/18/19 olopatadine 1 drp OPB QAM 09/18/19 09/18/19 New Rx's Medication Instructions Recorded amlodipine [Norvasc] 10 mg PO QAM #30 tab 09/20/19 aspirin 81 mg PO DAILY #90 tab 09/20/19 - Action: The above medications, specifically ones for stroke treatment/prophylaxis, have been reviewed in detail with the patient and/or patient territory representative(s) prior to discharge. This includes indication, common adverse reactions, drug interactions, and medication administration. Medication counseling has been employed using the teach-back method to ensure understanding. - Outcome: The patient and/or patient territory representative(s) have demonstrated understanding of the medications. Please note, they are aware that the pharmacist will call them within 72 hours post-discharge to confirm that the appropriate medications are being taken and answer any further medication related questions the patient might have at that time. Contact information Individual to be contacted: Letitia Relationship to patient (if applicable): self Phone number: [phone] Best time to call: after 9am Additional comments: Thank you for allowing pharmacy to be involved in the care of this patient. Please call [phone] or [phone] with any additional questions
--- NOTE | 2019-09-24 11:32 | Pharmacy Report ---
Pharmacist Post D/C Phone Note - Phone Note: Date of phone call: September 24, 2019. Individual with whom pharmacist spoke to: ANDREW ARTEAGA The following questions were reviewed during the phone call with responses listed below each: Can you tell me the medications that you are currently taking as well as when and how you take each medication? -See Table Below When have you missed any doses of your medications? - none What side effects are you having from your medications, specifically, the new medications you were started on? - nausea on first day but that has dissipated What questions do you have about your medications? - none What problems are you having obtaining your medications? - none When is your next appointment with your primary care doctor? - tomorrow Additional comments: - no problems As per the Pharmacist Discharge Counseling for Stroke Patients Protocol, this phone call has been completed within 72 hours of discharge. Thank you for allowing us to be involved in the care of this patient. - Home Medications: Home Medications Medication Instructions Recorded Confirmed famotidine 20 mg PO HS 09/18/19 09/18/19 levothyroxine 75 mcg PO QAM 09/18/19 09/18/19 lisinopril 40 mg PO QAM 09/18/19 09/18/19 metoprolol succinate 50 mg PO DAILY 09/18/19 09/18/19 multivitamin 1 tab PO DAILY 09/18/19 09/18/19 olopatadine 1 drp OPB QAM 09/18/19 09/18/19 New Rx's Medication Instructions Recorded amlodipine [Norvasc] 10 mg PO QAM #30 tab 09/20/19 aspirin 81 mg PO DAILY #90 tab 09/20/19
== END 2019-09-20 17:50 | disposition home or self-care (01) | DRG 69 ==
LOC: 2S 13:20 → ED 13:20 → SUATTDRO 15:54 → 2S 16:44